=== PATIENT | male | born 1980 | race Caucasian/White ===

== ENCOUNTER 2023-09-04 10:43 | Emergency (ER) | payer BC, SELFPAY ==
[2023-09-04] MEDS ORDERED: Ketorolac Tromethamine 30 MG (1 mL) VIAL ONE (10:55)
[2023-09-04] MEDS ORDERED: Lidocaine 4% Patch ONE (10:55)
[2023-09-04] MEDS ORDERED: Morphine 4 MG/ML VIAL ONE ×2 (11:36→12:54)
[2023-09-04] MEDS ORDERED: Ondansetron PF 4 MG/2 ML Vial ONE (11:36)
[2023-09-04 11:52] LABS: #Basophils 0.1 thou/uL (0.0-0.2); #Eosinphils 0.1 thou/uL (0.0-0.7); #Monocytes 0.3 thou/uL (0.11-0.59); #Neutrophils 8.6 thou/uL (1.40-6.50); %Basophils 0.6 % (0.0-1.0); %Eosinophils 1.3 % (0.0-10.0); %Lymphocytes 9.8 % (21.0-51.0); %Monocytes 3.1 % (0.0-10.0); %Neutrophils 85.2 % (42.0-75.0); Hematocrit 50.2 % (42.0-52.0); Hemoglobin 16.9 g/dL (14.0-18.0); Mean Corpuscular HGB CONC 33.6 g/dL (32.0-36.0); Mean Corpuscular Hemoglobin 32.2 pg (27.0-31.0); Mean Corpuscular Volume 95.9 fl (78.0-98.0); Mean Platelet Volume 6.7 fL (7.4-10.4); Platelet Count 235 10x3/uL (130-400); RBC Distribution Width 10.9 % (11.5-14.5); Red Blood Cell (RBC) Count 5.23 mill/uL (4.70-6.10); White Blood Cell (WBC) Count 10.1 10x3/uL (4.8-10.8)
[2023-09-04 12:05] LABS: Alcohol Less than 10.0 mg/dL (Less than 10); Anion Gap 21 mmol/L (10-20); BUN (Urea Nitrogen) 6 mg/dL (8.9-20.6); Calc. Creatinine Clearance 0 mL/min (70-130); Carbon Dioxide 18 mmol/L (22-29); Chloride 93 mmol/L (98-107); Estimated GFR 109; Glucose 141 mg/dL (70-105); Potassium 4.5 mmol/L (3.5-5.1); Sodium 127 mmol/L (136-145)
[2023-09-04 12:08] LABS: Troponin I Less than 0.010 ng/mL (< 0.028)
[2023-09-04] MEDS ORDERED: Sodium Chloride 0.9% 1,000 ML ONE (12:25)
== END 2023-09-04 13:11 | disposition short-term general hospital (02) ==
LOC: MADERS 10:43
DX: S22.41XA Multiple fractures of ribs, right side, initial encounter for closed fracture (principal); E87.6 Hypokalemia; E87.20 Acidosis, unspecified; F17.210 Nicotine dependence, cigarettes, uncomplicated; F10.120 Alcohol abuse with intoxication, uncomplicated; W19.XXXA Unspecified fall, initial encounter
CPT/HCPCS: 80048; 80307; 84484; 85025; 93005; 96361; 96372; 96374; 96375; 96376; J1885; J2270; J2405; J7050